=== PATIENT | male | born 1990 | race Two or more races ===

== ENCOUNTER 2017-07-30 18:31 | Emergency (ER) | payer OTHER ==
[~2017-07-30] VITALS: Ht 188 cm; Wt 146.8 kg
[~2017-07-30 18:31] MED LIST: ADDERALL XR 3030 MG PO; BACTRIM,SEPT1 TABLET PO; CEFTIN500 MG PO; CEPHALEXIN500 M1 PO; CLEOCIN150 MG PO; CLINDAMYCIN HC300 MG PO; FLONASE16 G1 BOTH NARES; IBUPROFEN200 M1 PO; KEFLEX500 MG PO; LEVAQUIN500 MG PO; METHADONE10 MG/1 M1 PO; MOTRIN600 MG PO
[2017-07-30 22:18] LABS: HEMATOCRIT 45.7 % (38.0-50.0); HEMOGLOBIN 14.7 G/DL (12.5-16.6); MCH 26.6 PG (29.0-34.0); MCHC 32.2 G/DL (30.0-36.0); MCV 82.6 FL (86-99); PLATELET COUNT 235 K/uL (156-360); RBC DIS.WIDTH-CV 14.2 % (11.8-14.6); RBC DIS.WIDTH-SD 41.7 % (39-53); RED BLOOD COUNT 5.53 M/uL (4.00-5.50); WHITE BLOOD COUNT 12.6 K/uL (4.1-10.2)
[2017-07-30] MEDS ORDERED: ULTRAM50 MG PO (22:37)
[2017-07-30] MEDS ORDERED: CLEOCIN300 MG PO (22:37)
[2017-07-30 22:54] LABS: ALBUMIN 3.3 g/dL (3.2-4.8); CHLORIDE 104 mEq/L (99-109); POTASSIUM 3.9 mEq/L (3.7-5.4); SODIUM 138 mEq/L (136-147)
[2017-07-30 22:56] LABS: GLUCOSE 98 mg/dL (70-99); TOTAL PROTEIN 7.5 g/dL (6.4-8.3)
[2017-07-30 22:58] LABS: TOTAL BILIRUBIN 0.5 mg/dL (0.0-1.0)
[2017-07-30 23:00] LABS: ALKALINE PHOSPHATASE 60 IU/L (3-129); CREATININE 0.7 mg/dL (0.6-1.3); GFR ESTIMATE (CALCULATED) > 59 mL/min/ (58.99-99999)
[2017-07-30 23:01] LABS: UREA NITROGEN (BUN) 5 mg/dL (9-23)
[2017-07-30 23:02] LABS: AST (GOT) 8 IU/L (2-34)
[2017-07-30 23:03] LABS: ALT (GPT) 8 IU/L (3-49)
[2017-07-30 23:32] VITALS: BP 110/88
== END 2017-07-30 23:33 | disposition home or self-care (01) ==
LOC: EME 18:31
PROVIDERS: Physician Assistant
PROC: 0H9GXZZ Drainage of Left Hand Skin, External Approach (ICD-10-PCS; principal; 2017-07-30)
DX: L02.512 Cutaneous abscess of left hand (principal); L03.114 Cellulitis of left upper limb; F17.200 Nicotine dependence, unspecified, uncomplicated
CPT/HCPCS: 80053; 85027; 87070; 87075; 87205; 99281; 99285